=== PATIENT | female | born 1955 | race Caucasian/White ===

== ENCOUNTER 2020-06-08 16:09 | Emergency (ER) | payer MEDICARE ==
[~2020-06-08] VITALS: Ht 157.5 cm; Wt 69.4 kg
[~2020-06-08 16:09] MED LIST: PREDNISONE 10 M10 M1 PO
[2020-06-08 16:41] LABS: ABSOLUTE BASOPHILS 0.1 thou/uL (0.0-0.2); ABSOLUTE EOSINOPHILS 0.1 thou/uL (0.0-0.7); ABSOLUTE MONOCYTES 0.7 thou/uL (0.0-1.2); BASOPHILS 1.1 %; EOSINOPHILS 1.4 %; HEMATOCRIT 45.1 % (37.0-47.0); HEMOGLOBIN 15.2 gm/dL (12.0-15.0); LYMPHOCYTES 22.4 %; MCHC 33.7 g/dL (28.0-37.0); MCV 91.9 fL (80.0-100.0); MONOCYTES 7.7 %; MPV 6.7 fl. (7.2-11.1); NUCLEATED RBCS 0 /100WBC; PLATELET COUNT* 448 thou/uL (150-400); POLYS 67.4 %; RBC 4.91 mil/uL (4.20-5.00); RDW-CV 14.2 % (10.5-14.5); WBC 8.9 thou/uL (4.0-11.0)
[2020-06-08 16:46] LABS: CALCIUM 9.1 mg/dL (8.5-10.1); CREATININE 0.8 mg/dL (0.6-1.3); POTASSIUM 3.8 mmol/L (3.5-5.1)
[2020-06-08 16:48] LABS: PROTIME 10.3 Seconds (9.20-11.50)
[2020-06-08 16:51] LABS: ALBUMIN 3.8 g/dL (3.4-5.0); TOTAL BILIRUBIN 0.4 mg/dL (<0.1-1.0)
[2020-06-08 18:05] VITALS: BP 124/62
--- NOTE | 2020-06-09 12:43 | EKG ---
[place] [address] ELECTROCARDIOGRAM REPORT Name: MERRITT PARADASA Chavez Room: [facility]#: [id number] Admission: 06/08/20 Attend Phys: Discharge: 06/08/20 Date of : 53 Date of Service: 06/08/20 1624 Report #: [id number] THIS REPORT FOR: //name// [facility] ED Test Date: 2020-06-08 Test Time: 16:24:14 Pat Name: JANELLE PARADA Department: Room: Gender: [employer] Hand: : 1955 Requested By: Quique Knight Order Number: [id number] MD: Celestino Christie Measurements Intervals [place] Rate: 99 P: 76 MN: 163 QRS: 38 QRSD: 87 T: 66 QT: 349 QTc: 448 Interpretive Statements Sinus rhythm RSR' in V1 or V2, probably normal variant Baseline wander in lead(s) V4 Compared to ECG 03/04/2011 17:00:20 RSR' in V1 or V2 now present Electronically Signed On 06-09-2020 12:43:07 [employer] by Celestino Christie [email or web address] <ELECTRONICALLY SIGNED> By: Celestino Christie MD, FACC 06/09/20 1243 1624 1624 Celestino Christie MD, FAC /EPI
== END 2020-06-08 18:06 | disposition home or self-care (01) ==
LOC: M.ERS 16:09
PROVIDERS: Family Medicine
DX: R20.2 Paresthesia of skin (principal); F17.210 Nicotine dependence, cigarettes, uncomplicated; Z88.6 Allergy status to analgesic agent; Z88.1 Allergy status to other antibiotic agents; Z88.0 Allergy status to penicillin